=== PATIENT | male | born 1990 | race Caucasian/White ===

== ENCOUNTER 2022-05-10 07:36 | Emergency (ER) | payer BC, OTHER ==
[2022-05-10 07:53] VITALS: BP 174/118; PULSE 87; RESP 18; TEMP 98; BMI 27.2
[2022-05-10] MEDS ORDERED: ACETAMINOPHEN 500 MG TABLET (FP) PO ONE (10:59)
[2022-05-10] MEDS ORDERED: METHOCARBAMOL 500 MG TABLET PO ONE (11:18)
[2022-05-10] MEDS ORDERED: ACETAMINOPHEN 500 MG TABLET (FP) ONE (11:21)
[2022-05-10] MEDS ORDERED: METHOCARBAMOL 500 MG TABLET ONE ×2 (11:21→11:30)
[2022-05-10] MEDS ORDERED: ACETAMINOPHEN 325 MG TABLET (FP) ONE (11:30)
[2022-05-10 12:13] LABS: EPI CELLS 2 /uL (0-25.1); HYALINE CASTS 0 /uL (0-3.1); PH,URINE 6.5 (5.0-8.0); URINE APPEARANCE CLEAR; URINE BACTERIA 5 /uL (0-1359); URINE BILIRUBIN NEGATIVE (NEGATIVE); URINE COLOR YELLOW; URINE GLUCOSE (UA) NEGATIVE (NEGATIVE); URINE KETONE NEGATIVE (NEGATIVE); URINE LEUK ESTERASE NEGATIVE (NEGATIVE); URINE NITRITE NEGATIVE (NEGATIVE); URINE PROTEIN TRACE (NEGATIVE); URINE RBC 57 /uL (0-23.9); URINE UROBILINOGEN 0.2 mg/dL (0.2-1.0); URINE WBC 3 /uL (0-25.8)
[2022-05-10] MEDS ORDERED: amLODIPine BESYLATE 5 MG TABLET (FP) PO ONE (12:38)
[2022-05-10] MEDS ORDERED: amLODIPine BESYLATE 5 MG TABLET (FP) ONE (12:44)
== END 2022-05-10 15:11 | disposition home or self-care (01) ==
LOC: JER 07:36
DX: M51.26 Other intervertebral disc displacement, lumbar region (principal); M54.42 Lumbago with sciatica, left side
CPT/HCPCS: 72131-TC; 81003; 87086; 99284-25

== ENCOUNTER 2022-05-15 15:50 | Emergency (ER) | payer BC, OTHER ==
[2022-05-15 16:15] VITALS: BP 135/100; PULSE 67; RESP 18; TEMP 97; BMI 27.2
[2022-05-15] MEDS ORDERED: DEXAMETHASONE SOD PHOSPHATE 10 MG/1 ML VIAL IM ONE (21:08)
[2022-05-15] MEDS ORDERED: DEXAMETHASONE SOD PHOSPHATE 10 MG/1 ML VIAL ONE (21:11)
== END 2022-05-15 22:00 | disposition left against medical advice (07) ==
LOC: JER 15:50
PROC: 3E0233Z Introduction of Anti-inflammatory into Muscle, Percutaneous Approach (ICD-10-PCS; principal; 2022-05-15)
DX: M21.371 Foot drop, right foot (principal); R20.0 Anesthesia of skin; M51.26 Other intervertebral disc displacement, lumbar region
CPT/HCPCS: 72148-TC; 99284-25; J1100

== ENCOUNTER 2022-05-18 15:21 | Inpatient (IN) | payer BC, OTHER ==
[2022-05-18 15:27] VITALS: BMI 27.2
[2022-05-18 17:06] LABS: BASO % 1.1 % (0-2.0); EOS % 1.5 % (0-4.5); HEMATOCRIT 41.2 % (35.4-49); HEMOGLOBIN 13.8 GM/dL (11.7-16.9); LYMPH % 36.8 % (8-40); MCHC 33.4 g/dl (32.0-35.9); MEAN CELL VOLUME 89.8 fl (80-96); MONO % 8.8 % (3.8-10.2); NEUT % 51.8 % (42.8-82.8); PLATELET COUNT 439 10^3/uL (134-434); RBC 4.59 M/mm3 (4.00-5.60); RDW 12.2 % (11.9-15.9); WHITE BLOOD COUNT 9.2 K/mm3 (4.0-10.0)
[2022-05-18 17:20] LABS: INR 0.95 (0.83-1.09); PROTHROMBIN TIME (PATIENT) 10.9 SEC (9.7-13.0)
[2022-05-18 17:23] LABS: ACTIVATED PTT 29.2 SECONDS (25.2-36.5)
[2022-05-18 17:26] LABS: CALCIUM 8.8 mg/dL (8.5-10.1)
[2022-05-18 17:27] LABS: ALBUMIN 3.7 g/dl (3.4-5.0); BLOOD UREA NITROGEN 14.4 mg/dL (7-18)
[2022-05-18 17:30] LABS: CREATININE 0.7 mg/dL (0.55-1.3)
[2022-05-18 17:31] LABS: BILIRUBIN,TOTAL 0.3 mg/dL (0.2-1); TOT PROT 6.8 g/dl (6.4-8.2)
[2022-05-18] MEDS ORDERED: LACTATED RINGERS SOLUTION 1,000 ML/1,000 ML INFUS.BAG IV SCH (18:15)
[2022-05-19] MEDS ORDERED: BUPIVACAINE HCL/PF 0.5% (5MG/ML) 10 ML VIAL ONE (07:31)
[2022-05-19] MEDS ORDERED: VANCOMYCIN 1,000 MG VIAL (RESTRICTED TO ID ONLY) ONE (07:31)
[2022-05-19] MEDS ORDERED: THROMBIN (BOVINE) 5,000 UNIT VIAL TP ONE ×3 (07:31→10:12)
[2022-05-19] MEDS ORDERED: BACITRACIN 15 GM TUBE TOPICAL OINTMENT ONE ×2 (07:39→16:20)
[2022-05-19] MEDS ORDERED: MIDAZOLAM HCL 2 MG/2 ML SINGLE DOSE VIAL ONE ×2 (09:34→10:56)
[2022-05-19] MEDS ORDERED: PROPOFOL 40 ML ONE (09:34)
[2022-05-19] MEDS ORDERED: FENTANYL CITRATE/PF 50 MCG/ML VIAL ONE ×3 (09:34→12:42)
[2022-05-19] MEDS ORDERED: SUCCINYLCHOLINE CHLORIDE 200 MG/10 ML SYRINGE ONE (09:34)
[2022-05-19] MEDS ORDERED: ROCURONIUM BROMIDE 50 MG/5 ML SYRINGE ONE ×2 (09:34→11:11)
[2022-05-19] MEDS ORDERED: ceFAZolin SODIUM 1 GM VIAL ONE (09:36)
[2022-05-19] MEDS ORDERED: VANCOMYCIN 1,000 MG VIAL (RESTRICTED TO ID ONLY) IVPB ONE (10:12)
[2022-05-19 10:17] LABS: BASO % 0.7 % (0-2.0); EOS % 2.2 % (0-4.5); HEMATOCRIT 38.1 % (35.4-49); HEMOGLOBIN 13.3 GM/dL (11.7-16.9); LYMPH % 36.7 % (8-40); MCH 31.2 pg (25.7-33.7); MCHC 34.9 g/dl (32.0-35.9); MEAN CELL VOLUME 89.4 fl (80-96); MEAN PLT VOLUME 6.9 fl (7.5-11.1); MONO % 7.1 % (3.8-10.2); NEUT % 53.3 % (42.8-82.8); PLATELET COUNT 411 10^3/uL (134-434); RBC 4.26 M/mm3 (4.00-5.60); RDW 12.7 % (11.9-15.9); WHITE BLOOD COUNT 9.3 K/mm3 (4.0-10.0)
[2022-05-19] MEDS ORDERED: ceFAZolin 2 GRAM PREMIX BAG IVPB ONE ×2 (10:22→10:36)
[2022-05-19] MEDS ORDERED: HYDROmorphone HCl 2 MG/ML VIAL ONE (10:46)
[2022-05-19] MEDS ORDERED: LABETALOL HCL 5 MG/1 ML (100MG/20 ML VIAL) ONE (10:56)
[2022-05-19] MEDS ORDERED: BUPIVACAINE HCL/PF 0.5% (5MG/ML) 10 ML VIAL IJ ONE ×2 (11:02)
[2022-05-19 11:09] LABS: ALBUMIN 3.7 g/dl (3.4-5.0)
[2022-05-19 11:10] LABS: BLOOD UREA NITROGEN 10.6 mg/dL (7-18); CALCIUM 9.1 mg/dL (8.5-10.1); MAGNESIUM 2.1 mg/dL (1.8-2.4)
[2022-05-19 11:13] LABS: CREATININE 0.7 mg/dL (0.55-1.3); PHOSPHOROUS 3.9 mg/dL (2.5-4.9)
[2022-05-19 11:14] LABS: BILIRUBIN,TOTAL 0.5 mg/dL (0.2-1)
[2022-05-19 11:15] LABS: TOT PROT 6.8 g/dl (6.4-8.2)
[2022-05-19] MEDS ORDERED: ePHEDrine SULFATE 50 MG/1 ML AMPULE ONE (12:22)
[2022-05-19] MEDS ORDERED: NEOSTIGMINE METHYLSULFATE 0.5 MG/ML - 10 ML MDV ONE (12:40)
[2022-05-19] MEDS ORDERED: GLYCOPYRROLATE 0.2 MG/1 ML VIAL ONE (12:40)
[2022-05-19] MEDS ORDERED: oxyCODONE HCL 5 MG TABLET PO PRN ×2 (12:44→14:02)
[2022-05-19] MEDS ORDERED: ONDANSETRON 4 MG/2 ML VIAL IVPUSH PRN ×4 (12:44→14:02)
[2022-05-19] MEDS ORDERED: amLODIPine BESYLATE 5 MG TABLET (FP) PO SCH (12:45)
[2022-05-19] MEDS ORDERED: D5-1/2NS+20 MEQ KCL - 20 MEQ/1,000 ML INFUS.BAG IV SCH (12:45)
[2022-05-19] MEDS ORDERED: diazePAM 5 MG TABLET PO SCH (12:45)
[2022-05-19] MEDS ORDERED: ACETAMINOPHEN 1000 MG/100 ML BAG IVPB ONE (13:03)
[2022-05-19] MEDS ORDERED: ACETAMINOPHEN INJECTION 100 ML IVPB ONE (13:07)
[2022-05-19] MEDS ORDERED: HYDROmorphone *PCA* 10MG/50ML DISP.SYRIN PCA SCH (13:15)
[2022-05-19] MEDS ORDERED: LACTATED RINGERS SOLUTION 1,000 ML IV SCH ×2 (13:15→14:02)
[2022-05-19] MEDS ORDERED: HYDROmorphone *PCA* 10MG/50ML DISP.SYRIN ONE (13:37)
[2022-05-19] MEDS ORDERED: DOCUSATE SODIUM 100 MG CAPSULE (FP) PO SCH (14:00)
[2022-05-19] MEDS: HYDROmorphone *PCA* 10MG/50ML DISP.SYRIN PCA SCH (14:10)
[2022-05-19] MEDS: D5-1/2NS+20 MEQ KCL - 20 MEQ/1,000 ML INFUS.BAG IV SCH (16:55)
[2022-05-19] MEDS ORDERED: CEFAZOLIN 1 GM in DEXTROSE 5%-WATER - 50 ML IVPB SCH (18:00)
[2022-05-19] MEDS: CEFAZOLIN 1 GM in DEXTROSE 5%-WATER - 50 ML IVPB SCH (18:14)
[2022-05-19 18:15] VITALS: RESP 18
[2022-05-19] MEDS: diazePAM 5 MG TABLET PO SCH (21:31)
[2022-05-19] MEDS: DOCUSATE SODIUM 100 MG CAPSULE (FP) PO SCH (21:34)
[2022-05-19] MEDS: NAPROXEN 500 MG TABLET PO SCH (21:34)
[2022-05-20] MEDS: CEFAZOLIN 1 GM in DEXTROSE 5%-WATER - 50 ML IVPB SCH (01:47)
[2022-05-20] MEDS ORDERED: DEXAMETHASONE SOD PHOSPHATE 4 MG/1 ML VIAL IVPUSH ONE (08:30)
[2022-05-20] MEDS: NAPROXEN 500 MG TABLET PO SCH (09:07)
[2022-05-20] MEDS ORDERED: amLODIPine BESYLATE 5 MG TABLET (FP) PO SCH (10:00)
[2022-05-20] MEDS ORDERED: POLYETHYLENE GLYCOL (HEALTHYLAX) 3350 17 GM PACKET PO SCH (10:15)
[2022-05-20 14:26] VITALS: TEMP 98.3
[2022-05-20] MEDS: DOCUSATE SODIUM 100 MG CAPSULE (FP) PO SCH (15:39)
[2022-05-20] MEDS: diazePAM 5 MG TABLET PO SCH (15:39)
[2022-05-20 17:50] VITALS: BP 123/65; PULSE 76
[2022-05-20] MEDS: HYDROmorphone *PCA* 10MG/50ML DISP.SYRIN PCA SCH (18:25)
[2022-05-20] MEDS: D5-1/2NS+20 MEQ KCL - 20 MEQ/1,000 ML INFUS.BAG IV SCH (18:43)
== END 2022-05-20 18:51 | disposition home or self-care (01) | DRG 460 ==
LOC: JER 15:21 → JERBED 17:26 → J6S 05-19 17:21
PROVIDERS: ADMIT Internal Medicine
PROC: 0SG30K1 Fusion of Lumbosacral Joint with Nonautologous Tissue Substitute, Posterior Approach, Posterior Column, Open Approach (ICD-10-PCS; 2022-05-19)
PROC: 00NY0ZZ Release Lumbar Spinal Cord, Open Approach (ICD-10-PCS; 2022-05-19)
PROC: 0SB40ZZ Excision of Lumbosacral Disc, Open Approach (ICD-10-PCS; 2022-05-19)
PROC: 0SB20ZZ Excision of Lumbar Vertebral Disc, Open Approach (ICD-10-PCS; 2022-05-19)
PROC: 4A1004G Monitoring of Central Nervous Electrical Activity, Intraoperative, Open Approach (ICD-10-PCS; 2022-05-19)
PROC: 0SG00K1 Fusion of Lumbar Vertebral Joint with Nonautologous Tissue Substitute, Posterior Approach, Posterior Column, Open Approach (ICD-10-PCS; principal; 2022-05-19 09:30)
DX: M51.16 Intervertebral disc disorders with radiculopathy, lumbar region (principal); M51.17 Intervertebral disc disorders with radiculopathy, lumbosacral region; M21.372 Foot drop, left foot; M48.07 Spinal stenosis, lumbosacral region; E66.3 Overweight; Z68.27 Body mass index [BMI] 27.0-27.9, adult; R03.0 Elevated blood-pressure reading, without diagnosis of hypertension
CPT/HCPCS: 36415; 71046-TC-FY; 72100-TC-FY; 80053; 83735; 84100; 85025; 85610; 85730; 86850; 86900; 86901; 88304-TC; 93005; 93010; 94760; 97116-GP; 97162-GP; 99285-25; C9803-CS; U0003; U0005